=== PATIENT | female | born 1970 ===

== ENCOUNTER 2020-02-24 06:00 | Day surgery (SDC) | payer OTHER ==
[~2020-02-24 06:00] MED LIST: BUDESONIDE-FO10.2 G1 IH; LEVOTHYROXINE25 MCG PO; MONTELUKAST SOD10 MG PO
== END 2020-02-24 14:15 | disposition home or self-care (01) ==
LOC: CIR.AMB 06:00
PROVIDERS: ATTEND Obstetrics & Gynecology
DX: N93.8 Other specified abnormal uterine and vaginal bleeding (principal); Z20.828 Contact with and (suspected) exposure to other viral communicable diseases